=== PATIENT | female | born 1950 | race Caucasian/White ===

== ENCOUNTER 2016-12-02 09:40 | Outpatient (CLI) | payer OTHER, MEDICARE ==
--- NOTE | 2016-12-02 11:26 | DIAGNOSTIC IMAGING REPORT ---
PROCEDURE: MG BILATERAL SCREENING W/CAD INDICATION: SCREENING TECHNIQUE: Bilateral CC and MLO digital views. COMPARISON: Compared to 09/02/2015, 11/27/2010, and 01/24/2008. FINDINGS: Computer-aided detection applied. Moderately dense with a few dystrophic and micro calcifications. No change. IMPRESSION: 1. Negative mammogram. RESULT CODE: 1- Negative. A. A negative report should not delay biopsy if a dominant or clinically suspicious mass is present. 10-15% of cancers are not identified by x-ray. B. A negative report may reinforce clinical impression. C. Adenosis and dense breasts may obscure an underlying neoplasm. D. False positive reports average 6-10%. E.. A yearly screening mammogram is recommended. A reminder letter will be scheduled.
--- NOTE | 2016-12-02 11:29 | DIAGNOSTIC IMAGING REPORT ---
PROCEDURE: DEXA BONE DENSITY STUDY CLINICAL INDICATION: OSTEOPOROSIS COMPARISON: DEXA dated 08/23/2012 FINDINGS: LUMBAR SPINE: Bone mineral density 0.715 g/cm2, T score -3.0 osteoporosis which represents a 0.3% decrease from previous study LEFT HIP: Bone mineral density 0.628 g/cm2, T score -2.6 osteoporosis which represents a 4.7% decrease from the previous study LEFT FEMORAL NECK: Bone mineral density 0.513 g/cm2, T score -3.0 osteoporosis which represents a 4.3% decrease from the previous study FRACTURE RISK CALCULATION ( when applicable): 10-year fracture risk of a major osteoporotic fracture and of a hip fracture not reported because some T-score at or below -2.5 (T score greater or equal to -1.0 to: NORMAL) (T score from -1.1 to -2.4: OSTEOPENIA) (T score ess than or equal to -2.5: OSTEOPOROSIS) IMPRESSION: 1. Osteoporosis spine hip and femoral neck. 4.7% decrease in the bone mineral density in the left hip. 4.3% decrease in the left femoral neck.
== END 2016-12-02 23:00 ==
LOC: MAM SRH 09:40
DX: Z12.31 Encounter for screening mammogram for malignant neoplasm of breast (principal); M81.8 Other osteoporosis without current pathological fracture